=== PATIENT | male | born 1970 | race Caucasian/White ===

== ENCOUNTER 2025-01-21 08:45 | Day surgery (SDC) | payer BC ==
[~2025-01-21] VITALS: Ht 182.9 cm; Wt 111.0 kg
[2025-01-21 11:45] VITALS: TEMP 98.8
[2025-01-21 11:58] VITALS: BP 120/72; O2SAT 99
== END 2025-01-21 12:15 | disposition home or self-care (01) ==
LOC: M OPP 08:45
PROVIDERS: ATTEND Surgery
DX: Z12.11 Encounter for screening for malignant neoplasm of colon (principal); D12.6 Benign neoplasm of colon, unspecified; K57.30 Diverticulosis of large intestine without perforation or abscess without bleeding